=== PATIENT | male | born 1960 | race Two or more races ===

== ENCOUNTER → 2016-05-30 | Day surgery (SDC) | payer OTHER ==
[~2016-05-30] MED LIST: ALLERGY MED; AMOXICILLIN PO; ASPIRIN EC81 M1 PO; NAPROXEN PO; ZANTAC PO
--- NOTE | ~2016-05-30 | OR ---
Unit #: [id number] #: [id number] Patient: SPEEDY BURNS [id number] [address] [id number] [id number] O MR#: [id number] NAME: SPEEDY BURNS ROOM: Date of Procedure: 05/30/2016 Admission Date: 05/30/2016 Surgeon: Robbin Lundberg M.D. : 1960 Attending Physician: Robbin Lundberg M.D. Referring Physician: Robbin Lundberg M.D. Primary Care Physician: [facility] OPERATIVE REPORT PROCEDURE PERFORMED Colonoscopy to cecum. INDICATIONS FOR PROCEDURE History of polyps. MEDICATIONS Monitored. POSTOPERATIVE FINDINGS Normal exam to the cecum. Good prep. PLAN Repeat colonoscopy in 5 years. DESCRIPTION OF PROCEDURE The patient was explained of the procedure, risks, and benefits along with the risks and benefits of anesthesia. He was brought to the endoscopy room. Propofol anesthesia was given. Rectal exam was done, which was normal. Colonoscope was lubricated, passed up the rectum, advanced under direct vision all the way to the cecum. Cecum was identified by ileocecal valve and appendiceal orifice. I retroflexed in the rectum. Small hemorrhoids seen. The scope was gently pulled out. He tolerated it well. No major complications were seen. Dictated by... Va Garcia/ezequiel TD: 05/31/2016 02:16 JOB #: [id number] CC: Gregorio Watkins M.D. Unit #: [id number] #: [id number] Patient: SPEEDY BURNS OPERATIVE REPORT Page 1 of 1 X Robbin Lundberg MD X PROCEDURE OPERATIVE NOTE
== END | disposition home or self-care (01) ==
LOC: COPS 11:45
DX: Z12.11 Encounter for screening for malignant neoplasm of colon (principal); K64.9 Unspecified hemorrhoids; E66.9 Obesity, unspecified; Z86.010 Personal history of colon polyps; Z88.0 Allergy status to penicillin; Z79.82 Long term (current) use of aspirin